=== PATIENT | female | born 1955 ===

== ENCOUNTER 2016-07-28 12:30 | Emergency (ER) | payer OTHER, MEDICAID ==
[2016-07-28 12:30] VITALS: BMI 26.0
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
--- NOTE | 2016-07-28 14:35 | CT ---
PROCEDURE: CT Cervical Spine without contrast HISTORY: [facility] COMPARISON: None available. TECHNIQUE: Axial computed tomography images were obtained of the cervical spine without the use of intravenous contrast. Coronal and sagittal reformatted images were created and reviewed. Radiation dose: Total exam DLP = 464.91 mGy-cm. This CT exam was performed using one or more of the following dose reduction techniques: Automated exposure control, adjustment of the mA and/or kV according to patient size, and/or use of iterative reconstruction technique. FINDINGS: VERTEBRAE: There is no acute fracture or traumatic anterior listhesis. Bone alignment and mineralization are normal. 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 There is straightening of the cervical spine with loss of normal cervical lordosis. The craniocervical junction is normal. The atlantoaxial joint is normal. DISCS/SPINAL CANAL/NEURAL FORAMINA: There is mild multilevel degenerative disc disease due to combination of disc osteophyte complexes, uncovertebral joint hypertrophy and multilevel facet arthropathy, worse at C3-4 with severe left neural foraminal stenosis. No spinal canal stenosis. PARASPINAL SOFT TISSUES: There is no prevertebral soft tissue thickening. OTHER FINDINGS: There is no apical pneumothorax. IMPRESSION: No acute fracture or traumatic anterior listhesis. Straightening of the cervical spine may be positional or related to muscle spasm.
[2016-07-28 15:05] VITALS: BP 157/82; PULSE 65; RESP 20; TEMP 98.1
[2016-07-28 16:15] VITALS: O2SAT 99
== END 2016-07-28 15:12 | disposition home or self-care (01) ==
LOC: SUPCPDRO 12:30 → C.ER 12:30
DX: S00.93XA Contusion of unspecified part of head, initial encounter (principal); V49.40XA Driver injured in collision with unspecified motor vehicles in traffic accident, initial encounter

== ENCOUNTER 2017-10-17 12:32 | Emergency (ER) | payer MEDICAID ==
[2017-10-17 12:33] VITALS: BMI 26.0
[2017-10-17 12:57] VITALS: RESP 16
[2017-10-17] MEDS ORDERED: Dexamethasone 4 mg/1 ml IVP STA (14:45)
[2017-10-17 14:52] LABS: BASO % 0.4 % (0.0-2.0); EOS # 0.9 K/uL (0.0-0.7); EOS % 13.2 % (0.0-4.0); HEMOGLOBIN 12.9 g/dL (11.0-16.0); LYMPH # 2.5 K/uL (1.0-4.3); LYMPH % 37.4 % (20.0-40.0); MEAN CORPUSCULAR HEMOGLOBIN 29.6 pg (27.0-31.0); MEAN PLATELET VOLUME 8.3 fL (7.2-11.7); MONO # 0.4 K/uL (0.0-0.8); MONO % 5.7 % (0.0-10.0); NEUT # 2.9 K/uL (1.8-7.0); NEUT % 43.3 % (50.0-75.0); NRBC % 0.1 % (0.0-2.0); RBC 4.36 Mil/uL (3.80-5.20); RED CELL DISTRIBUTION WIDTH 13.8 % (11.5-14.5); WHITE BLOOD COUNT 6.7 K/uL (4.8-10.8)
[2017-10-17] MEDS ORDERED: Dexamethasone 4 mg/1 ml ONE (14:56)
[2017-10-17 15:11] LABS: ALB/GLOB RATIO 1.4 (1.0-2.1); ALBUMIN 4.4 g/dL (3.5-5.0); ALT/SGPT 79 U/L (9-52); AST/SGOT 59 U/L (14-36); BLOOD UREA NITROGEN 14 mg/dL (7-17); CALCIUM 8.8 mg/dl (8.6-10.4); GFR AFRICAN-AMERICAN > 60; GFR NON-AFRICAN AMERICAN > 60
--- NOTE | 2017-10-17 15:40 | C.PDOC ---
History Of Present Illness Patient with history of Thyroidectomy secondary to Thyroid cancer presents to ED with c/o right neck pain and right shoulder pain radiating down arm intermittently for 2 years but worsening now prompting visit. Patient denies tongue numbness, neck stiffness, vomiting or any other complaints at this time. Time Seen by Provider: 10/17/17 14:09 Chief Complaint (Nursing): Weakness/Neurological Deficit History Per: Patient History/Exam Limitations: no limitations Onset/Duration Of Symptoms: Days Current Symptoms Are (Timing): Still Present Past Medical History Reviewed: Historical Data, Nursing Documentation, Vital Signs Vital Signs: Last Vital Signs Temp 97.9 F 10/17/17 15:56 Pulse 70 10/17/17 15:56 Resp 16 10/17/17 15:56 BP 163/76 H 10/17/17 15:56 Pulse Ox 98 10/17/17 16:00 - Medical History PMH: HTN, Hyperlipidemia Surgical History: Appendectomy Family History: States: No Known Family Hx - Social History Hx Tobacco Use: No Hx Alcohol Use: No Hx Substance Use: No - Immunization History Hx Tetanus Toxoid Vaccination: Yes Hx Influenza Vaccination: No Hx Pneumococcal Vaccination: No Review Of Systems Constitutional: Negative for: Fever, Chills Gastrointestinal: Negative for: Nausea, Vomiting Musculoskeletal: Positive for: Neck Pain, Shoulder Pain, Arm Pain Skin: Negative for: Rash Neurological: Negative for: Weakness, Numbness Physical Exam - Physical Exam Appears: Non-toxic, No Acute Distress Skin: Warm, Dry, No Rash Head: Atraumatic, Normacephalic Eye(s): bilateral: Normal Inspection, PERRL, EOMI Oral Mucosa: Moist Throat: No Erythema, No Exudate Neck: Normal ROM, Paracervical Tenderness (right), No Step Off Deformity Chest: Symmetrical, No Tenderness Cardiovascular: Rhythm Regular Respiratory: Normal Breath Sounds, No Rales, No Rhonchi, No Wheezing Gastrointestinal/Abdominal: Soft, No Tenderness, No Guarding, No Rebound Back: No CVA Tenderness, Other (posterior muscle tenderness to right trapezius) Extremity: Normal ROM, Capillary Refill (<2 seconds), No Swelling Pulses: Left Dorsalis Pedis: Normal, Right Dorsalis Pedis: Normal Neurological/Psych: Oriented x3, Normal Speech, Normal Cognition, Normal Motor Gait: Steady ED Course And Treatment - Laboratory Results Result Diagrams: 10/17/17 14:48 10/17/17 14:48 O2 Sat by Pulse Oximetry: 98 (RA) Pulse Ox Interpretation: Normal Disposition - Disposition Referrals: [facility] [Outside] Disposition: HOME/ ROUTINE Disposition Time: 15:37 Condition: GOOD Additional Instructions: \Follow up with the medical doctor/clinic within 1-2 days without fail. Return if worsened. 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 - Scribe Statement The provider has reviewed the documentation as recorded by the Scribjony Gamez All medical record entries made by the Balwinderibjony were at my direction and personally dictated by me. I have reviewed the chart and agree that the record accurately reflects my personal performance of the history, physical exam, medical decision making, and the department course for this patient. I have also personally directed, reviewed, and agree with the discharge instructions and disposition.
[2017-10-17 15:57] VITALS: BP 163/76; PULSE 70; TEMP 97.9
--- NOTE | 2017-10-17 15:57 | RAD ---
HISTORY: Code Stroke COMPARISON: 10/14/2016. FINDINGS: LUNGS: The lungs are well inflated and clear. PLEURA: No significant pleural effusion identified, no pneumothorax apparent. CARDIOVASCULAR: Normal. OSSEOUS STRUCTURES: No significant abnormalities. VISUALIZED UPPER ABDOMEN: Normal. OTHER FINDINGS: None. IMPRESSION: No active pulmonary disease.
[2017-10-17 15:58] VITALS: O2SAT 98
--- NOTE | 2017-10-18 23:29 | CARD ---
APPROVED REPORT EKG Measurement Heart [id number] <Conclusion> Normal sinus rhythm Normal ECG
== END 2017-10-17 16:08 | disposition home or self-care (01) ==
LOC: C.ER 12:32
DX: M62.838 Other muscle spasm (principal); E78.5 Hyperlipidemia, unspecified; I10 Essential (primary) hypertension
CPT/HCPCS: 71045; 80053; 82948; 85025; 93005; 96374; 96375; 99284; J1100; J1885